=== PATIENT | male | born 1995 | race Caucasian/White ===

== ENCOUNTER 2018-10-12 07:35 | Inpatient (IN) ==
--- NOTE | 2018-10-12 08:15 | ED ---
HPI General Chief Complaint: Psychiatric Symptoms Stated Complaint: Psych Eval Time Seen by Provider: 10/12/18 07:52 History of Present Illness HPI Narrative: This patient has been having anxiety and panic symptoms as well as paranoid thoughts for the last week. He presents with mother voluntarily. They want psychiatric evaluation. He denies feeling suicidal. He is to follow with psychiatrist Dr. Otero and used to be on Adderall. He reports that he did abuse the Adderall and no longer takes it. No history of IV drug use. Symptom severity is moderate. Duration 7 days. No alleviating factors. No exacerbating factors. Related Data Home Medications Medication Instructions Recorded Confirmed No Known Home Medications 10/12/18 10/12/18 Allergies Allergy/AdvReac Type Severity Reaction Status Date / Time No Known Allergies Allergy Verified 10/12/18 08:02 Review of Systems ROS: all other systems reviewed are negative [facility], [facility] Medical History Medical History ADD (attention deficit disorder) (Acute) Surgical History Surgical History No history of previous surgery (Acute) Social History Social History Substance History: Active Abuse Second Hand Smoke Exposure: No Smoking Status: Former smoker How Often Do You Have a Drink Containing Alcohol: 2 to 4 times a month Recent Travel in [facility] within the Last 8 Weeks: No Recent Out of Country Travel within the Last 8 Weeks: No Substance Abuse Detail Marijuana: Substance Use Status: Active Route Used Substance Abuse: By Mouth Reason for Use: Calm Down Immunization History Tetanus Immunization: Unsure Exam Narrative Exam Narrative: GENERAL: Well-nourished, well-developed patient in no apparent distress. SKIN: Focused skin assessment reveals no rash and nodules. Skin is Warm and dry. HEAD: Atraumatic. Normocephalic. EYES: Pupils equal and round. No scleral icterus. No injection or drainage. ENT: No nasal bleeding or discharge. Mucous membranes pink and moist. NECK: Trachea midline. No JVD. CARDIOVASCULAR: Regular rate and rhythm. No murmur appreciated. RESPIRATORY: No accessory muscle use. Clear to auscultation. Breath sounds equal bilaterally. GASTROINTESTINAL: Abdomen soft, non-tender, nondistended. Hepatic and splenic margins not palpable. MUSCULOSKELETAL: No obvious deformities. No clubbing. No cyanosis. No edema. NEUROLOGICAL: Awake and alert. No obvious cranial nerve deficits. Motor grossly within normal limits. Normal speech. PSYCHIATRIC: Appropriate mood and affect; insight and judgment reduced. Course Initial Documented Vital Signs Temperature 98.7 F 10/12/18 07:37 Pulse Rate 91 H 10/12/18 07:37 Respiratory Rate 17 10/12/18 07:37 Blood Pressure 169/85 H 10/12/18 07:37 Pulse Oximetry 99 10/12/18 07:37 Last Documented Vital Signs Temperature 98.7 F 10/12/18 07:37 Pulse Rate 84 10/12/18 08:00 Respiratory Rate 16 10/12/18 08:00 Blood Pressure 162/96 H 10/12/18 08:00 Pulse Oximetry 98 10/12/18 08:00 Medical Decision Making MDM Narrative Medical decision making narrative: 23-year-old male with anxiety and paranoia symptoms for 1 week. I ordered medical clearance workup to include labs and a tox screen as well as ordering psychiatric evaluation. Patient is medically stable. His labs are normal. His blood pressure is elevated but not emergently so. He will be sent over to psychiatry for evaluation and likely discharged after that. Medical Screen Exam Complete: Yes Emergency Medical Condition: Yes Medical Records Medical records reviewed: Yes I reviewed the patient's medical records. Lab Data Lab results reviewed: Yes I reviewed the patient's lab results. Lab results narrative: Labs are normal Result diagrams: 10/12/18 08:35 10/12/18 08:35 Lab Results 10/12/18 10/12/18 10/12/18 Range/Units 08:35 08:35 08:42 WBC 8.6 (4.0-11.0) th/mm3 RBC 5.03 (4.50-5.90) mil/mm3 Hgb 15.2 (13.0-17.0) gm/dL Hct 44.2 (39.0-51.0) % MCV 87.9 (80.0-100.0) fL MCH 30.3 (27.0-34.0) pg MCHC 34.4 (32.0-36.0) % RDW 13.4 (11.6-17.2) % Plt Count 218 (150-450) th/mm3 MPV 7.9 (7.0-11.0) fL Neut % (Auto) 81.2 H (16.0-70.0) % Lymph % (Auto) 8.9 L (9.0-44.0) % [place] % (Auto) 9.3 H (0.0-8.0) % Eos % (Auto) 0.4 (0.0-4.0) % Baso % (Auto) 0.2 (0.0-2.0) % Neut # (Auto) 7.0 (1.8-7.7) th/mm3 Lymph # (Auto) 0.8 L (1.0-4.8) th/mm3 [place] # (Auto) 0.8 (0.0-0.9) th/mm3 Eos # (Auto) 0.0 (0.0-0.4) th/mm3 Baso # (Auto) 0.0 (0.0-0.2) th/mm3 WBC Differential . Differential Comment Auto diff final Sodium 138 (136-145) meq/L Potassium 3.5 (3.5-5.1) meq/L Chloride 107 (98-107) meq/L Carbon Dioxide 25.2 (21.0-32.0) meq/L Anion Gap 6 (5-15) meq/L BUN 11 (7-18) mg/dL Creatinine 0.95 (0.60-1.30) mg/dL Estimated GFR Greater than 89 (>89) mL/min Random Glucose 85 (74-106) mg/dL Calcium 9.2 (8.5-10.1) mg/dL Total Bilirubin 1.8 H (0.2-1.0) mg/dL AST 62 H (15-37) U/L ALT 49 (12-78) U/L Alkaline Phosphatase 63 (45-117) U/L Total Protein 7.5 (6.4-8.2) g/dL Albumin 4.2 (3.4-5.0) g/dL TSH 0.908 (0.358-3.740) uIU/mL Urine Opiates Screen Neg (Neg) Ur Barbiturates Screen Neg (Neg) Ur Amphetamines Screen Neg (Neg) U Benzodiazepines Scrn Neg (Neg) Urine Cocaine Screen Neg (Neg) U Cannabinoids Screen Pos H (Neg) Serum Alcohol Less than 3 (0-5) mg/dL Discharge Plan Discharge Disposition Patient Disposition: 01 Discharge Home Discharge Details Diagnosis: Acute anxiety, Acute paranoia Physicians Team ED Provider: Toney Tucker Primary Care Provider: Primary Care Bharati Pelaez Rxs /Orders / Referrals /Forms Prescriptions: No Action No Known Home Medications RF: 0 Discharge Interventions Interventions: Vital Signs Last Done: 10/12/18 08:00 Status ED Status: Medically Cleared
[2018-10-12 09:01] LABS: Baso % (Auto) 0.2 % (0.0-2.0); Eos % (Auto) 0.4 % (0.0-4.0); Hematocrit 44.2 % (39.0-51.0); Hemoglobin 15.2 gm/dL (13.0-17.0); Lymph # (Auto) 0.8 th/mm3 (1.0-4.8); Lymph % (Auto) 8.9 % (9.0-44.0); Mean Corpuscular HGB Conc 34.4 % (32.0-36.0); Mean Corpuscular Hemoglobin 30.3 pg (27.0-34.0); Mean Corpuscular Volume 87.9 fL (80.0-100.0); Mean Platelet Volume 7.9 fL (7.0-11.0); Mono # (Auto) 0.8 th/mm3 (0.0-0.9); Mono % (Auto) 9.3 % (0.0-8.0); Neut % (Auto) 81.2 % (16.0-70.0); Platelet Count 218 th/mm3 (150-450); Red Blood Count 5.03 mil/mm3 (4.50-5.90); Red Cell Distribution Width 13.4 % (11.6-17.2); White Blood Count 8.6 th/mm3 (4.0-11.0)
[2018-10-12 09:08] LABS: Amphetamine Screen,Urine Neg (Neg); Barbiturate Screen,Urine Neg (Neg); Cannabinoid Screen,Urine Pos (Neg); Cocaine Screen,Urine Neg (Neg)
[2018-10-12 09:09] LABS: Opiate Screen,Urine Neg (Neg)
[2018-10-12 09:16] LABS: Albumin 4.2 g/dL (3.4-5.0); Anion Gap 6 meq/L (5-15); Aspartate Aminotransferase 62 U/L (15-37); Blood Urea Nitrogen 11 mg/dL (7-18); Calcium 9.2 mg/dL (8.5-10.1); Carbon Dioxide 25.2 meq/L (21.0-32.0); Chloride 107 meq/L (98-107); Glomerular Filtration Rate Greater Than 89 mL/min (>89); Glucose,Random 85 mg/dL (74-106); Potassium 3.5 meq/L (3.5-5.1); Sodium 138 meq/L (136-145)
[2018-10-12 09:17] LABS: Alanine Aminotransferase 49 U/L (12-78)
[2018-10-12 09:27] LABS: Alkaline Phosphatase 63 U/L (45-117); Thyroid Stimulating Hormone 0.908 uIU/mL (0.358-3.740); Total Protein 7.5 g/dL (6.4-8.2)
--- NOTE | 2018-10-12 11:59 | ED ---
HPI - Psych - General Source: patient Limitations: no limitations - History of Present Illness Onset (ago): hour(s) Duration: intermittent History of same: No Relieving factors: none Exacerbating factors: alcohol, drug use Context: recent drug abuse Associated psychiatric symptoms: depression, delusions - General Chief Complaint: Psychiatric Symptoms Stated Complaint: Psych Eval Time Seen by Provider: 10/12/18 12:10 - History of Present Illness HPI Narrative: Patient is a 23 years old young man came into the ED with his mother on a voluntary status seeking psychiatric evaluation. The patient's mother reported that he has been acting strange for the last 2 weeks. The mother describe his facial expression as weird With inappropriate laughter that changed into total sadness. She also noticed that the patient is overtly preoccupied with scientology overtones and thinks that he is hexed on under a spell evil spirits. According to the mother he is also racing paranoid thoughts that he is a subject of an experiment. His mother explain that she noticed him having extreme anxiety and panic attacks sometimes. He states that the symptoms got increasingly worse since last Friday. The patient presents himself as a well-nourished male who looks frightened and intimidated from being here on the unit. He is evasive in answering most of the requesting but stated that he has been feeling well and does not know what is going on with him. The patient admits to abusing marijuana, Adderall/methamphetamine and "experimented drugs" given by his friends. The patient denies any suicidal thoughts or auditory or visual hallucinations. He presents as an anxious person and and paces around the nurses station. Patient has some insight and expresses willingness to accept further hospitalization and treatment. The patient's mother thinks that he may be also grieving the of his father who 1 year ago. The patient reported that he is a patient of Dr. Petersen who have been treating him for ADD but he confesses to abusing the Adderall medication prescribed to him. Patient is alert and orientated x3 and his speech is rational and appropriate. There is evidence of agitation but no behavioral disturbances are present. Patient is presenting with symptoms that appears to be that of acute psychosis and can possibly be triggered by recent drug abuse. His urine toxicology is positive only for cannabinoids he denies abuse of alcohol. Patient reported positive family history of schizophrenic illness and depression. His paternal aunt was diagnosed with schizophrenia and paternal grandma was treated for bipolar disorder. (Roger Fuentes) - Related Data Home Medications Medication Instructions Recorded Confirmed No Known Home Medications 10/12/18 10/12/18 Allergies Allergy/AdvReac Type Severity Reaction Status Date / Time No Known Allergies Allergy Verified 10/12/18 08:02 [facility] - History History Provided By: Patient - Medical History Medical History: Medical History (Last Reviewed 10/12/18 @ 08:14 by Toney Tucker MD) ADD (attention deficit disorder) - Surgical History Surgical History: Surgical History (Last Reviewed 10/12/18 @ 08:14 by Toney Tucker MD) No history of previous surgery - Tobacco History Second Hand Smoke Exposure: No Tobacco Use In Past 30 Days: No Smoking Status: Former smoker - Alcohol History How Often Do You Have a Drink Containing Alcohol: 2 to 4 times a month - Substance Use History Substance History: Active Abuse - Substance Use Type Marijuana Status: Active Route Used: By Mouth Frequency: "Occasional" Last Used: "3 or 4 days ago" Reason for Use: Calm Down Comment: "I don't use that often, but I have been using since I was about 12" Alcohol Status: Active Route Used: By Mouth Frequency: "Social" Last Used: "3 or 4 days ago" Reason for Use: Feels Good Comment: "I don't drink that often" - Travel History Recent Travel in the [place] Within the Last 8 Weeks: No Recent Travel Out of the Country Within the Last 8 Weeks: No - Immunization History Tetanus Immunization: Unsure Psychiatric History - Psychiatric History Patient was treated recently by Dr. PETERSEN for Attention Deficit Disorder. His ever been treated for any other mental health disorders. (Roger Fuentes) - Legal History Denies any legal problems (Roger Fuentes) - Family Psychiatric History He reported family history of schizophrenia and mood disorder. He states that his maternal aunt was treated for schizophrenia and his maternal grandma was treated for depression/bipolar. (Roger Fuentes) Mental Status Examination Appearance: Appropriate Consciousness: Alert Orientation: x4 Motor Activity: Normal gait Speech: Unremarkable Language: Adequate Fund of Knowledge: Adequate Attention and Concentration: Easily distracted Memory: Unremarkable Mood: Appropriate Affect: Appropriate Thought Process & Associations: Intact, Logical, Goal directed Thought Content: Appropriate Hallucination Type: None Delusion Type: None Suicidal Ideation: No Suicidal Plan: No Suicidal Intention: No Homicidal Ideation: No Homicidal Plan: No Homicidal Intention: No Insight: Adequate Judgment: Adequate Initial Documented Vital Signs Temperature 98.7 F 10/12/18 07:37 Pulse Rate 91 H 10/12/18 07:37 Respiratory Rate 17 10/12/18 07:37 Blood Pressure 169/85 H 10/12/18 07:37 Pulse Oximetry 99 10/12/18 07:37 Last Documented Vital Signs Temperature 98.7 F 10/12/18 07:37 Pulse Rate 84 10/12/18 08:00 Respiratory Rate 16 10/12/18 08:00 Blood Pressure 162/96 H 10/12/18 08:00 Pulse Oximetry 98 10/12/18 08:00 MDM - Psych - Diagnosis (1) Acute psychosis Code(s): F23 - Brief psychotic disorder Status: Acute - Lab Data Result diagrams: 10/12/18 08:35 10/12/18 08:35 - [facility] Narrative Medical decision making narrative: The patient is receptive to remain in the hospital for further psychiatric evaluation and treatment of what appears to be acute psychosis and and the presence of mood symptoms. The patient adamantly denies any suicidal thoughts or hallucinations. The patient's mother continues to be supportive and she is advocating inpatient treatment. The plan is to continue his voluntary status and admit him to the 2700 inpatient unit. (Roger Fuentes) - Lab Data Lab Results 10/12/18 10/12/18 10/12/18 Range/Units 08:35 08:35 08:42 WBC 8.6 (4.0-11.0) th/mm3 RBC 5.03 (4.50-5.90) mil/mm3 Hgb 15.2 (13.0-17.0) gm/dL Hct 44.2 (39.0-51.0) % MCV 87.9 (80.0-100.0) fL MCH 30.3 (27.0-34.0) pg MCHC 34.4 (32.0-36.0) % RDW 13.4 (11.6-17.2) % Plt Count 218 (150-450) th/mm3 MPV 7.9 (7.0-11.0) fL Neut % (Auto) 81.2 H (16.0-70.0) % Lymph % (Auto) 8.9 L (9.0-44.0) % [place] % (Auto) 9.3 H (0.0-8.0) % Eos % (Auto) 0.4 (0.0-4.0) % Baso % (Auto) 0.2 (0.0-2.0) % Neut # (Auto) 7.0 (1.8-7.7) th/mm3 Lymph # (Auto) 0.8 L (1.0-4.8) th/mm3 [place] # (Auto) 0.8 (0.0-0.9) th/mm3 Eos # (Auto) 0.0 (0.0-0.4) th/mm3 Baso # (Auto) 0.0 (0.0-0.2) th/mm3 WBC Differential . Differential Comment Auto diff final Sodium 138 (136-145) meq/L Potassium 3.5 (3.5-5.1) meq/L Chloride 107 (98-107) meq/L Carbon Dioxide 25.2 (21.0-32.0) meq/L Anion Gap 6 (5-15) meq/L BUN 11 (7-18) mg/dL Creatinine 0.95 (0.60-1.30) mg/dL Estimated GFR Greater than 89 (>89) mL/min Random Glucose 85 (74-106) mg/dL Calcium 9.2 (8.5-10.1) mg/dL Total Bilirubin 1.8 H (0.2-1.0) mg/dL AST 62 H (15-37) U/L ALT 49 (12-78) U/L Alkaline Phosphatase 63 (45-117) U/L Total Protein 7.5 (6.4-8.2) g/dL Albumin 4.2 (3.4-5.0) g/dL TSH 0.908 (0.358-3.740) uIU/mL Urine Opiates Screen Neg (Neg) Ur Barbiturates Screen Neg (Neg) Ur Amphetamines Screen Neg (Neg) U Benzodiazepines Scrn Neg (Neg) Urine Cocaine Screen Neg (Neg) U Cannabinoids Screen Pos H (Neg) Serum Alcohol Less than 3 (0-5) mg/dL
[2018-10-12] MEDS ORDERED: Aluminum/Magnesium/Simethacone Susp 30 ML UDC PO PRN (12:35)
[2018-10-12] MEDS ORDERED: Haloperidol 5 MG Tablet PO ONE (13:34)
[2018-10-13] MEDS ORDERED: LORazepam 1 MG Tablet PO PRN (13:48)
--- NOTE | 2018-10-13 13:57 | P.HPPSY ---
Provisional Diagnosis Admission Date: October 12, 2018 12:33 Cliff I.: Mood disorder unspecified Alcohol abuse Cannabis abuse Competence Certification of Person's Competence To Provide Express and Informed Consent I have personally examined Maxwell Martinez IV, a person being served at [facility] on, October 13, 2018 4839. Express and informed consent means consent voluntarily given in writing, by a competent person, after sufficient explanation and disclosure of the subject matter involved to enable the person to make a knowing and willful decision without any element of force, fraud, deceit, duress, or other form of constraint or coercion. This person is 18 years of age or older, is not now known to be incompetent to consent to treatment with a guardian advocate, and does not have a health care surrogate or proxy currently making medical treatment decisions. I have found this person to be one of the following: [xxx] Competent to provide express and informed consent, as defined above, for voluntary admission to this facility and is competent to provide express and informed consent for treatment. He/she has the consistent capacity to make well reasoned, willful, and knowing decisions concerning his or her medical or mental health treatment. The person fully and consistently understands the purpose of the admission for examination/placement and is fully capable of personally exercising all rights assured [place] [] Incompetent to provide express and informed consent to voluntary admission, and this is incompetent to provide express and informed consent to treatment. The person must be transferred to involuntary status and a petition for a guardian advocate filed with the Circuit Court. [] Refusing to provide express and informed consent to voluntary admission but is competent to provide express and informed consent for treatment. The person must be discharged or transferred to involuntary status. Form shall be completed within 24 hours of a person's arrival at the receiving facility and filed in the clinical record of each person: 1. Admitted on a voluntary basis 2. Permitted to provide express and informed consent to his/her own treatment 3. Allowed to transfer from involuntary to voluntary status 4. Prior to permitting a person to consent to his or her own treatment after having been previously found incompetent to consent to treatment. History of Present Illness Capacity: Has capacity Chief Complaint: "I had a mental breakdown" History of Present Illness: Patient is a 23 years old young man came into the ED with his mother on a voluntary status seeking psychiatric evaluation. The patient's mother reported that he has been acting strange for the last 2 weeks. The mother describe his facial expression as weird With inappropriate laughter that changed into total sadness. She also noticed that the patient is overtly preoccupied with latter-day overtones and thinks that he is hexed on under a spell evil spirits. According to the mother he is also racing paranoid thoughts that he is a subject of an experiment. His mother explain that she noticed him having extreme anxiety and panic attacks sometimes. He states that the symptoms got increasingly worse since last Friday. The patient presents himself as a well-nourished male who looks frightened and intimidated from being here on the unit. He is evasive in answering most of the requesting but stated that he has been feeling well and does not know what is going on with him. The patient admits to abusing marijuana, Adderall/methamphetamine and "experimented drugs" given by his friends. The patient denies any suicidal thoughts or auditory or visual hallucinations. He presents as an anxious person and and paces around the nurses station. Patient has some insight and expresses willingness to accept further hospitalization and treatment. The patient reportedly slept well overnight and was seen this morning during recreational therapy to be interacting appropriately with his peers. Patient reported that his mind is "much clearer now I think the Ativan last night really help me sleep and slow my thoughts down." The patient admits to worsening anxiety and depression since losing his father 1 year ago. He admits to "self medicating" with marijuana and alcohol but decided that that was no longer a good idea and attempted to quit 1 week ago. He reports worsening sleep and racing thoughts over the last week and describes it as "it felt like I was having sensory overload There was a lot of contradictory information in my head and a because the mental breakdown and a spiritual crisis." The patient admits to flight of ideas and a decreased need for sleep and feels much better since getting rest last night. As for depression, the patient reports a history of recurrent depression with the last episode occurring following the loss of his father but he reports mood has responded positively to his efforts to medicate with cannabis and alcohol. He does describe symptoms of restless sleep, decreased interest, increased feelings of helplessness, decreased energy, and decreased concentration but denies any suicidal ideations. As for anxiety, the patient reports worsening anxiety about his future since his father . He admits to feeling hopeless and helpless that he will ever "have a productive life and a family". He denies any history of traumas or reliving past events. He denies anxiety attacks. As for psychosis, the patient denies any history of hallucinations or delusions prior to this week. As for misbah, the patient denies any history of euphoric or elevated mood states with decreased need for sleep prior to this week. Past psychiatric history: Past Diagnoses: Depression and anxiety. Hospitalizations: Denies Suicidal behavior: Denies Past psychotropic medication trials: Patient reports that he was prescribed Adderall for his mood but it made him more anxious so he discontinued. Outpatient treatment: The patient was followed by Dr. Edmund heaton but stopped seeing him 3 months ago Substance Use Treatment: Denies Abuse/assault history: Denies Family psychiatric history: Patient reported positive family history of schizophrenic illness and depression. His paternal aunt was diagnosed with schizophrenia and paternal grandma was treated for bipolar disorder. Psychosocial history: Patient was born and raised in [facility], intact family with 2 older siblings. His father in February 2017. Patient reports that he graduate high school and has some college. He is never been . He is currently unemployed and was planning on joining the [employer] and that was 1 of his motivations for stopping alcohol and cannabis use. He denies any legal problems. He currently lives with his mother and feels guilty that he has not been able to be more helpful to her. Substance Use history: Urine drug screen on exam in ED was positive for cannabis. Tobacco use: Denies Alcohol use: Patient reports that he recently had a peak and his alcohol use to the point where he was becoming intoxicated every other day. His last drink was 1 week ago. Cannabis use: Patient reports a daily use for years and last use was 1 week ago Stimulant use: Patient reports that he has abused cocaine and ecstasy in the past and most recently had been prescribed Adderall but reports that he discontinued because it made him more anxious. There is conflicting information in the medical record to suggest that the patient had a history of abusing Adderall and this would explain why the patient is reluctant to be referred back to Dr. Edmund Laurent as he said that he did not think Dr. Shaffer 01 to see him again. Opiate use: Denies Prescription drug abuse: Unknown Past medical history: Contributing medical conditions include--none reported Lab/test results: significant lab abnormalities on admission include only an AST that was elevated to 62. - Inpatient Certification I certify that the inpatient services were ordered in accordance with Medicare regulations governing the order. This includes certification that hospital inpatient services are reasonable and necessary and in the case of services not specified as inpatient-only under 42 CFR 419.22(n), that they are appropriately provided as inpatient services in accordance to with the 2-midnight benchmark under 43 CFR 412.3(e) I certify that inpatient psychiatric hospital services are medically necessary. Evaluation and treatment and/or diagnostic testing are expected to improve the patient's condition. The patient needs on a daily basis, active treatment furnished directly by or requiring the supervision of inpatient psychiatric facility personnel. Estimated Total Length of Stay (Days): 7 Plans for Post Hospital Care: Home [facility] - History History Provided By: Patient - Medical History Medical History: Medical History (Last Reviewed 10/12/18 @ 08:14 by Toney Tucker MD) ADD (attention deficit disorder) - Surgical History Surgical History: Surgical History (Last Reviewed 10/12/18 @ 08:14 by Toney Tucker MD) No history of previous surgery - Tobacco History Second Hand Smoke Exposure: No Tobacco Use In Past 30 Days: No Smoking Status: Former smoker - Alcohol History How Often Do You Have a Drink Containing Alcohol: 2 to 4 times a month - Substance Use History Substance History: Active Abuse - Substance Use Type Marijuana Type: Marijuana Status: Active Route Used: Inhalation Frequency: Patient reports smoking "every other day" Last Used: "3 or 4 days ago" Reason for Use: Calm Down, Feels Good, Socialization Comment: "I don't use that often, but I have been using since I was about 12" Alcohol Type: Alcohol Status: Active Route Used: By Mouth Frequency: Patient reports drinking approximately a pint of whiskey "every other day" Last Used: "3 or 4 days ago" Reason for Use: Calm Down, Feels Good, Socialization Comment: "I don't drink that often" Other Type: 25I-NBOMe Status: Sustained Remission Frequency: Patient reports only taking once. Comment: Patient reported that he tried "25 i" once in 2012. Patient reported that the experience reminded him of the symptoms that he has experienced over the past week. Amphetamines Type: Adderall Status: Early Remission Route Used: By Mouth Comment: Patient reports misusing his prescribed adderall pills. Patient reports quitting Adderall approximately 3 months ago. Patient stated that Adderall use exacerbated his symptoms of anxiety. - Travel History Recent Travel in the [place] Within the Last 8 Weeks: No Recent Travel Out of the Country Within the Last 8 Weeks: No - Immunization History Tetanus Immunization: Unsure Medications and Allergies Active Medications: Active Medications Al Hydrox/Mg Hydrox/Simethicone (Mag-Al Plus Susp Liq) 30 ml PO Q6H PRN PRN Reason: DYSPEPSIA Al Hydroxide/Mg Hydroxide (Milk Of Magnesia Liq) 30 ml PO Q12H PRN PRN Reason: Mild Constipation Hydroxyzine HCl (Atarax) 50 mg PO Q6H PRN PRN Reason: Anxiety or insomnia Quetiapine Fumarate (Seroquel) 50 mg PO HS [facility] Allergies Allergy/AdvReac Type Severity Reaction Status Date / Time No Known Allergies Allergy Verified 10/12/18 08:02 Home Medications Medication Instructions Recorded Confirmed Type No Known Home Medications 10/12/18 10/12/18 History Results - Labs CBC & Chem 7: 10/12/18 08:35 10/12/18 08:35 Exam Vital signs: Vital Signs 10/12/18 14:20 10/13/18 05:59 Temperature 98 F 98.0 F Pulse Rate 91 H 93 H Respiratory Rate 18 18 Blood Pressure 164/99 H 159/99 H Pulse Oximetry 97 98 Intake & Output 10/12/18 10/13/18 10/13/18 18:59 06:59 18:59 Weight 99 kg Other: Weight On Admission 99 kg Mental Status Examination Appearance: Appropriate Consciousness: Alert Orientation: x4 Motor Activity: Normal gait Speech: Unremarkable Language: Adequate Fund of Knowledge: Adequate Attention and Concentration: Easily distracted Memory: Unremarkable Mood: Appropriate Affect: Appropriate Thought Process & Associations: Intact, Logical, Goal directed Thought Content: Appropriate Hallucination Type: None Delusion Type: None Suicidal Ideation: No Suicidal Plan: No Suicidal Intention: No Homicidal Ideation: No Homicidal Plan: No Homicidal Intention: No Insight: Adequate Judgment: Adequate Assessment and Plan - Assessment (1) Acute psychosis Code(s): F23 - Brief psychotic disorder Status: Acute (2) Alcohol abuse Code(s): F10.10 - Alcohol abuse, uncomplicated Status: Acute (3) Cannabis abuse Code(s): F12.10 - Cannabis abuse, uncomplicated Status: Acute - Plan Plan: 1. Continue with admission to inpatient psychiatry at [facility]; voluntary /competent legal status. 2. Routine unit precautions. 3. Comfort medications ordered for as needed treatment of constipation, heartburn, diarrhea, and mild pain. 4. Hydroxyzine 50mg po q6H prn anxiety/insomnia. 5. Alcohol withdrawal protocol ordered with Ativan as needed per CIWA scores. 6. Start Seroquel 50 mg at bedtime for treatment of psychosis. 7. Patient will participate in the unit programming to include group therapies , milieu therapy and recreational therapies. 8. Discharge planning: The patient will need referrals to psychiatry as well as consideration of substance abuse treatment. Estimated LOS: 5 days Justification for Continued Inpatient Stay: 23-year-old male resents voluntarily for psychiatric treatment due to acute mental status changes consistent with psychosis and a mixed manic episode. Patient reports stable mood and thought processes prior to 1 week ago when he decided to quit alcohol and marijuana use. Patient has a family history of bipolar disorder and schizophrenia therefore his recent mental status is concerning for a mixed manic episode with psychosis but given his elevated AST and admitted excessive alcohol use to modulate his mood over the past year is possible that his presentation is due to alcohol withdrawal. He will be started on alcohol withdrawal protocol as well as treatment with a sedated of antipsychotic to help regulate his sleep and observe for continued improvements.
[2018-10-13] MEDS ORDERED: QUEtiapine 25 MG Tablet PO SCH (21:00)
[2018-10-14] MEDS ORDERED: QUEtiapine 25 MG Tablet PO SCH (15:08)
--- NOTE | 2018-10-14 15:11 | P.PNPSY ---
Subjective Chief Complaint: "I had a mental breakdown" Remarks: Patient seen for follow-up, chart reviewed, patient discussed with nursing staff ; we reviewed the patient's mood, thoughts, and behaviors from overnight and this morning. Nursing reports the patient has been calm and cooperative and mostly seclusive. His blood pressure has been elevated and this morning it was 160/99 and heart rate equal to 93. CIWA scores remain 0. Patient was seen while participating during recreational therapy at this morning. He admits to continued feelings of paranoia but nonspecific. He reports sleeping much better with the start of Seroquel and denies feeling any excess sedation. He does complain of anxiety and rates his anxiety as 8 out of 10 but has not requested treatment. There is no signs of tremors and he does not believe he is withdrawing from drugs or alcohol. He does not recall ever being told he had high blood pressure but he believes it is due to his anxiety and agitation. Patient expressed desire to be discharged home but was willing to stay 1 more night to try and increase of the Seroquel and continued monitoring of his vitals. A brief review of systems was done and the patient denies any nausea, diarrhea, constipation, abdominal pain, headaches, dizziness, tremors, muscle spasms, chest pain, or heart palpitations. Mental Status Examination Appearance: Appropriate Consciousness: Alert Orientation: x4 Motor Activity: Normal gait Speech: Unremarkable Language: Adequate Fund of Knowledge: Adequate Attention and Concentration: Easily distracted Memory: Unremarkable Mood: Anxious Affect: Anxious Thought Process & Associations: Intact, Logical, Goal directed Thought Content: Appropriate, Other (Patient admits to having paranoia but cannot describe specific conspiracies) Hallucination Type: None Delusion Type: None Suicidal Ideation: No Suicidal Plan: No Suicidal Intention: No Homicidal Ideation: No Homicidal Plan: No Homicidal Intention: No Insight: Adequate Judgment: Adequate Assessment and Plan - Assessment (1) Acute psychosis Code(s): F23 - Brief psychotic disorder Status: Acute (2) Alcohol abuse Code(s): F10.10 - Alcohol abuse, uncomplicated Status: Acute (3) Cannabis abuse Code(s): F12.10 - Cannabis abuse, uncomplicated Status: Acute - Plan Plan: October 13, 2018: Initial assessment and plan 23-year-old male resents voluntarily for psychiatric treatment due to acute mental status changes consistent with psychosis and a mixed manic episode. Patient reports stable mood and thought processes prior to 1 week ago when he decided to quit alcohol and marijuana use. Patient has a family history of bipolar disorder and schizophrenia therefore his recent mental status is concerning for a mixed manic episode with psychosis but given his elevated AST and admitted excessive alcohol use to modulate his mood over the past year is possible that his presentation is due to alcohol withdrawal. He will be started on alcohol withdrawal protocol as well as treatment with a sedated of antipsychotic to help regulate his sleep and observe for continued improvements. 1. Continue with admission to inpatient psychiatry at [facility]; voluntary /competent legal status. 2. Routine unit precautions. 3. Comfort medications ordered for as needed treatment of constipation, heartburn, diarrhea, and mild pain. 4. Hydroxyzine 50mg po q6H prn anxiety/insomnia. 5. Alcohol withdrawal protocol ordered with Ativan as needed per CIWA scores. 6. Start Seroquel 50 mg at bedtime for treatment of psychosis. 7. Patient will participate in the unit programming to include group therapies , milieu therapy and recreational therapies. 8. Discharge planning: The patient will need referrals to psychiatry as well as consideration of substance abuse treatment. Estimated LOS: 5 days October 14, 2018: Fair response to treatment as the patient has been able to remain calm and cooperative and tolerated some interactions with the milieu. He is denying auditory or visual hallucinations or experiencing derealization but he does complain of nonspecific paranoia and agrees with plan to further increase his Seroquel and remain hospitalized at least 1 more night. Continue current inpatient psychiatric treatment and stabilization. Increase Seroquel to 100 mg at bedtime. Start clonidine 0.1 mg every 4-6 hours as needed for systolic blood pressure greater than or equal to 160 or diastolic blood pressure greater than or equal to 95. Continue Atarax 50 mg every 6 hours as needed for anxiety. Anticipate discharge home tomorrow if stable and improving, with follow-up with psychiatry. The patient is now saying that Dr. Edmund cordova will be his outpatient psychiatrist. Justification for Continued Inpatient Stay: Patient remains an elevated risk for self-harm and harm to others by acting out on his paranoia and will require further inpatient stabilization and preparation of a safe discharge plan. Moving patient to a less restrictive environment at this time may result in decompensation.
[2018-10-14 16:57] VITALS: O2SAT 98
[2018-10-15 05:55] VITALS: BP 135/100; PULSE 94; RESP 17; TEMP 97.6
--- NOTE | 2018-10-15 13:43 | P.DSPSY ---
Psychiatry Discharge Summary Inpatient Psychiatric care?: Yes Advance Directives: No Mental Health Advance Directive: No Health Care Proxy: No - Admission Admission Date: October 12, 2018 12:33 - Admission Diagnosis (1) Acute psychosis Code(s): F23 - Brief psychotic disorder (2) Alcohol abuse Code(s): F10.10 - Alcohol abuse, uncomplicated (3) Cannabis abuse Code(s): F12.10 - Cannabis abuse, uncomplicated Brief History: Patient is a 23 years old young man came into the ED with his mother on a voluntary status seeking psychiatric evaluation. The patient's mother reported that he has been acting strange for the last 2 weeks. The mother describe his facial expression as weird With inappropriate laughter that changed into total sadness. She also noticed that the patient is overtly preoccupied with sabianist overtones and thinks that he is hexed on under a spell evil spirits. According to the mother he is also racing paranoid thoughts that he is a subject of an experiment. His mother explain that she noticed him having extreme anxiety and panic attacks sometimes. He states that the symptoms got increasingly worse since last Friday. The patient presents himself as a well-nourished male who looks frightened and intimidated from being here on the unit. He is evasive in answering most of the requesting but stated that he has been feeling well and does not know what is going on with him. The patient admits to abusing marijuana, Adderall/methamphetamine and "experimented drugs" given by his friends. The patient denies any suicidal thoughts or auditory or visual hallucinations. He presents as an anxious person and and paces around the nurses station. Patient has some insight and expresses willingness to accept further hospitalization and treatment. The patient reportedly slept well overnight and was seen this morning during recreational therapy to be interacting appropriately with his peers. Patient reported that his mind is "much clearer now I think the Ativan last night really help me sleep and slow my thoughts down." The patient admits to worsening anxiety and depression since losing his father 1 year ago. He admits to "self medicating" with marijuana and alcohol but decided that that was no longer a good idea and attempted to quit 1 week ago. He reports worsening sleep and racing thoughts over the last week and describes it as "it felt like I was having sensory overload There was a lot of contradictory information in my head and a because the mental breakdown and a spiritual crisis." The patient admits to flight of ideas and a decreased need for sleep and feels much better since getting rest last night. As for depression, the patient reports a history of recurrent depression with the last episode occurring following the loss of his father but he reports mood has responded positively to his efforts to medicate with cannabis and alcohol. He does describe symptoms of restless sleep, decreased interest, increased feelings of helplessness, decreased energy, and decreased concentration but denies any suicidal ideations. As for anxiety, the patient reports worsening anxiety about his future since his father . He admits to feeling hopeless and helpless that he will ever "have a productive life and a family". He denies any history of traumas or reliving past events. He denies anxiety attacks. As for psychosis, the patient denies any history of hallucinations or delusions prior to this week. As for misbah, the patient denies any history of euphoric or elevated mood states with decreased need for sleep prior to this week. Past psychiatric history: Past Diagnoses: Depression and anxiety. Hospitalizations: Denies Suicidal behavior: Denies Past psychotropic medication trials: Patient reports that he was prescribed Adderall for his mood but it made him more anxious so he discontinued. Outpatient MH treatment: The patient was followed by Dr. Edmund heaton but stopped seeing him 3 months ago Substance Use Treatment: Denies Abuse/assault history: Denies Family psychiatric history: Patient reported positive family history of schizophrenic illness and depression. His paternal aunt was diagnosed with schizophrenia and paternal grandma was treated for bipolar disorder. Psychosocial history: Patient was born and raised in [facility], intact family with 2 older siblings. His father in February 2017. Patient reports that he graduate high school and has some college. He is never been . He is currently unemployed and was planning on joining the [employer] and that was 1 of his motivations for stopping alcohol and cannabis use. He denies any legal problems. He currently lives with his mother and feels guilty that he has not been able to be more helpful to her. Substance Use history: Urine drug screen on exam in ED was positive for cannabis. Tobacco use: Denies Alcohol use: Patient reports that he recently had a peak and his alcohol use to the point where he was becoming intoxicated every other day. His last drink was 1 week ago. Cannabis use: Patient reports a daily use for years and last use was 1 week ago Stimulant use: Patient reports that he has abused cocaine and ecstasy in the past and most recently had been prescribed Adderall but reports that he discontinued because it made him more anxious. There is conflicting information in the medical record to suggest that the patient had a history of abusing Adderall and this would explain why the patient is reluctant to be referred back to Dr. Edmund Laurent as he said that he did not think Dr. Shaffer 01 to see him again. Opiate use: Denies Prescription drug abuse: Unknown Past medical history: Contributing medical conditions include--none reported Lab/test results: significant lab abnormalities on admission include only an AST that was elevated to 62. Tobacco Use In Past 30 Days: No How Often Do You Have a Drink Containing Alcohol: 2 to 4 times a month Hospital Course: October 13, 2018: Initial assessment and plan 23-year-old male resents voluntarily for psychiatric treatment due to acute mental status changes consistent with psychosis and a mixed manic episode. Patient reports stable mood and thought processes prior to 1 week ago when he decided to quit alcohol and marijuana use. Patient has a family history of bipolar disorder and schizophrenia therefore his recent mental status is concerning for a mixed manic episode with psychosis but given his elevated AST and admitted excessive alcohol use to modulate his mood over the past year is possible that his presentation is due to alcohol withdrawal. He will be started on alcohol withdrawal protocol as well as treatment with a sedated of antipsychotic to help regulate his sleep and observe for continued improvements. 1. Continue with admission to inpatient psychiatry at [facility]; voluntary /competent legal status. 2. Routine unit precautions. 3. Comfort medications ordered for as needed treatment of constipation, heartburn, diarrhea, and mild pain. 4. Hydroxyzine 50mg po q6H prn anxiety/insomnia. 5. Alcohol withdrawal protocol ordered with Ativan as needed per CIWA scores. 6. Start Seroquel 50 mg at bedtime for treatment of psychosis. 7. Patient will participate in the unit programming to include group therapies , milieu therapy and recreational therapies. 8. Discharge planning: The patient will need referrals to psychiatry as well as consideration of substance abuse treatment. Estimated LOS: 5 days October 14, 2018: Fair response to treatment as the patient has been able to remain calm and cooperative and tolerated some interactions with the milieu. He is denying auditory or visual hallucinations or experiencing derealization but he does complain of nonspecific paranoia and agrees with plan to further increase his Seroquel and remain hospitalized at least 1 more night. Continue current inpatient psychiatric treatment and stabilization. Increase Seroquel to 100 mg at bedtime. Start clonidine 0.1 mg every 4-6 hours as needed for systolic blood pressure greater than or equal to 160 or diastolic blood pressure greater than or equal to 95. Continue Atarax 50 mg every 6 hours as needed for anxiety. Anticipate discharge home tomorrow if stable and improving, with follow-up with psychiatry. The patient is now saying that Dr. Edmund cordova will be his outpatient psychiatrist. October 15, 2018: Patient was seen and examined on the unit by psychiatry and also visited by counselor. Psychotropic medications remained well tolerated. There was a good response to inpatient treatment plan noted by nursing and provider observations, and the patient reported improvements in mood, anxiety, and there was no evidence of any hallucinations, delusions, suicidality or homicidality at time of discharge. Psychiatric follow-up as arranged by counselor. Patient is also to follow up with primary care for further assessment of his high blood pressure. I have counseled the patient to abstain from substances of abuse including cannabis and have counseled patient to return to the psychiatric emergency room for any concerning symptoms as part of a general safety plan. Weighing the acute, chronic, and protective factors and based on the available evidence, I stencil maker that the patient does not presently meet criteria for involuntary psychiatric hospitalization. Suicide risk assessment on day of discharge suggest lower than imminent risk from mental illness. Patient is denying suicidal ideation. There is no evidence of impairment in reality construction. We will bolster protective factors by relinking the patient with outpatient psychiatric services. There is no evidence of self-care deficit at time of discharge. There is no evidence to support an involuntary hospitalization therefore discharge order placed per patient's request. The patient's mother was contacted per the patient's request and we discussed his discharge plan as well as safety planning and the mother is supportive of his discharge and will come pick him up today. Discharge medications include prescriptions for Seroquel 50 mg take 2 tablets by mouth at bedtime #60 refill 0, Atarax 50 mg take 1 tablet by mouth every 8 hours as needed for anxiety #30 refill 0. - Discharge Discharge Date: 10/15/18 - Discharge Diagnosis (1) Anxiety Code(s): F41.9 - Anxiety disorder, unspecified Status: Acute (2) Acute psychosis Code(s): F23 - Brief psychotic disorder Status: Resolved (3) Alcohol abuse Code(s): F10.10 - Alcohol abuse, uncomplicated Status: Acute (4) Cannabis abuse Code(s): F12.10 - Cannabis abuse, uncomplicated Status: Acute Discharge Disposition: Home - Discharge Time > 30 minutes Mental Status Examination Appearance: Appropriate Consciousness: Alert Orientation: x4 Motor Activity: Normal gait Speech: Unremarkable Language: Adequate Fund of Knowledge: Adequate Attention and Concentration: Easily distracted Memory: Unremarkable Mood: Anxious Affect: Anxious Thought Process & Associations: Intact, Logical, Goal directed Thought Content: Appropriate, Other (Patient admits to having paranoia but cannot describe specific conspiracies) Hallucination Type: None Delusion Type: None Suicidal Ideation: No Suicidal Plan: No Suicidal Intention: No Homicidal Ideation: No Homicidal Plan: No Homicidal Intention: No Insight: Adequate Judgment: Adequate Discharge/Advance Care Plan - Results Vital Signs: Last Vital Signs Temp 97.6 F 10/15/18 05:54 Pulse 94 H 10/15/18 05:54 Resp 17 10/15/18 05:54 BP 135/100 H 10/15/18 05:54 Pulse Ox 98 10/15/18 05:54 Lab Results: Abnormal Lab Results 10/14/18 16:32 POC Glucose 93 Laboratory Results TSH 0.908 uIU/mL (0.358-3.740) 10/12/18 08:35 Summary of Procedures: None ordered Pending Results: None - Medications Number of antipsychotic medications at discharge: 1 - Discharge Care Plan Goals to Promote Your Health: * To prevent worsening of your condition and complications * To maintain your health at the optimal level Directions to Meet Your Goals: Take your medications as prescribed Follow your dietary instruction Follow activity as directed Keep your appointments as scheduled Take your immunizations and boosters as scheduled If your symptoms worsen call your PCP, if no PCP go to Urgent Care Center or Emergency Room For 10/03 questions related to your inpatient stay or results of tests pending at discharge, please contact Dr. Isaac Rose MD at Smoking is Dangerous to Your Health. Avoid second hand smoking
== END 2018-10-15 13:15 | disposition home or self-care (01) | DRG 885 ==
LOC: NEPD 07:35 → H270 12:33 → NEDA 12:33 → H270 14:18
PROVIDERS: ADMIT Psychiatry & Neurology Psychiatry; ATTEND Psychiatry & Neurology Psychiatry